=== PATIENT | female | born 1970 | race African-American/Black ===

== ENCOUNTER 2022-06-12 11:46 | Outpatient (CLI) | payer BC, SELFPAY ==
--- NOTE | ~2022-06-12 | MMUS_ITS ---
EXAMINATION: MM diagnostic urmila BI w vanesa, US breast BI limited HISTORY: Palpable lump in the outer of the right breast TECHNIQUE: Craniocaudal, mediolateral, and mediolateral oblique 3-D tomosynthesis images of the right breast were performed and synthetic 2-D images were generated. CAD analysis was submitted and interp reted. High resolution limited bilateral breast ultrasound was performed. COMPARISON: None, baseline BREAST PARENCHYMAL COMPOSITION: The breasts are heterogeneously dense, which may obscure small masses . FINDINGS: MAMMOGRAPHIC FINDINGS: No definite mammographic correlate is identified for the reported palpable abnormality of concern of the right breast. There is a 5 mm oval, obscured, equal density mass in the middle third of the upper -outer quadrant of the left breast at the 2:00 location 5 cm from the nipple. ULTRASOUND: There are small cysts measuring up to 4 mm in the area of palpable abnormality of the right breast. N o suspicious cystic or solid mass is identified. There is a 6 mm cyst of the left breast correspondin g to the mammographic finding in question. IMPRESSION: 1. No suspicious mammographic or sonographic correlate is identified for the reported palpable abnorm ality of concern. Further evaluation at this time should be based on clinical assessment. Continued f ollow-up physical examination is recommended. No mammographic or sonographic evidence of malignancy. 2. Recommend routine screening mammography in one year. BI-RADS Category 2: Benign finding(s). Reviewed, dictated and finalized at location A. IMPRESSION: 1. No suspicious mammographic or sonographic correlate is identified for the re ported palpable abnormality of concern. Further evaluation at this time should be based on clinical assessment. Continued follow-up physical examination is re commended. No mammographic or sonographic evidence of malignancy. 2. Recommend routine screening mammography in one year. BI-RADS Category 2: Benign finding(s).
--- NOTE | ~2022-06-12 | US_ITS ---
EXAMINATION: US pelvic complete DATE: 06/12/2022 13:19 INDICATION: Uterine hypertrophy Comparison:No prior studies for comparison. TECHNIQUE: Multiple transabdominal and endovaginal sonographic images of the pelvis performed. FINDINGS: The uterus measures 18.9 x 11.1 x 11.4 cm. There are multiple uterine masses of varying ech ogenicity, compatible with fibroids. Largest measures 8.6 x 7.2 x 8.3 cm. The endometrial complex is not well delineated due to fibroid changes. The right ovary is not visualized.. The left ovary measures 4.2 x 2.4 x 3.8 cm. There is a 2.4 cm lef t ovarian cyst. There is no free fluid in the pelvis. There are no abnormal masses seen on either side. IMPRESSION: 1. Enlarged fibroid uterus the largest discrete fibroid measures 8.3 cm. 2: Left ovarian cyst measures 2.4 cm. Reviewed, dictated and finalized at location B.
== END 2022-06-12 11:47 ==
PROVIDERS: PCP Advanced Practice Midwife; Visit Provider Advanced Practice Midwife
DX: N63.10 Unspecified lump in the right breast, unspecified quadrant (principal); N85.2 Hypertrophy of uterus; N93.8 Other specified abnormal uterine and vaginal bleeding; N83.202 Unspecified ovarian cyst, left side
CPT/HCPCS: 76642; 76856; 77062; 77066; G0279

== ENCOUNTER 2022-06-14 07:07 | Outpatient (RCR) | payer BC, SELFPAY ==
[2022-06-13 15:49] LABS: Hematocrit 22.3 % (37.0-47.0)
[2022-06-13 16:48] LABS: Hemoglobin 5.8 g/dL (12.0-15.0)
[2022-06-14] VITALS (9 sets, daily range): BP systolic 101–128; BP diastolic 56–81; PULSE 63–86; RESP 14–16; TEMP 36.4–37.1; O2SAT 99–100
[2022-06-14] MEDS: SODIUM CHLORIDE 0.9% IV 250 ML 30 ML IV CONT (07:37)
--- NOTE | 2022-06-14 13:42 | PC.NURSE ---
2 unit PRBC transfusion finished. RN presented discharge instructions, and patient left via personal vehicle at 1340.
== END 2022-09-11 23:59 | disposition home or self-care (01) ==
LOC: ANHCPCTRAN 07:07
PROVIDERS: PCP Advanced Practice Midwife; Visit Provider Obstetrics & Gynecology Gynecology
DX: D58.2 Other hemoglobinopathies (principal)
CPT/HCPCS: 36415; 36430; 85014; 85018; 86850; 86900; 86901; 86920; J7050; P9016

== ENCOUNTER 2022-06-21 11:26 | Outpatient (CLI) | payer BC, SELFPAY ==
[2022-06-21 12:07] LABS: Hematocrit 32.5 % (37.0-47.0); Immature Platelet Fraction Pct 7.2 % (0.9-11.2); Mean Corpuscular HGB Conc 27.7 g/dl (32-36); Mean Corpuscular Hemoglobin 19.3 pg (26-34); Mean Corpuscular Volume 69.7 fl (80-100); Platelet Count Result 272 k/mm3 (150-375); Red Blood Count 4.66 M/mm3 (4.2-5.4); Red Cell Distribution Width 32.7 % (11.5-14.5); White Blood Count 5.9 K/mm3 (4.5-10.0)
== END 2022-06-21 11:27 | disposition home or self-care (01) ==
LOC: ANHLAB 11:31
PROVIDERS: Visit Provider Obstetrics & Gynecology Gynecology
DX: D50.9 Iron deficiency anemia, unspecified (principal)
CPT/HCPCS: 36415; 85027; 85055

== ENCOUNTER 2022-07-07 17:25 | Emergency (ER) | payer BC, SELFPAY ==
[2022-07-07 17:30] VITALS: BP 141/84; PULSE 87; RESP 16; TEMP 36.6; O2SAT 100
[2022-07-07 17:48] LABS: Basophils Percent Auto 0.5 % (0.2-1.2); Eosinophils Absolute Auto 0.1 K/mm3 (0-0.3); Eosinophils Percent Auto 1.6 % (0-4.4); Hematocrit 35.4 % (37.0-47.0); Hemoglobin 10.6 g/dL (12.0-15.0); Immature Granulocyte Absolute 0.01 K/mm3 (0.00-0.031); Immature Granulocyte Percent A 0.1 % (0-0.5); Immature Platelet Fraction Pct 4.6 % (0.9-11.2); Mean Corpuscular HGB Conc 29.9 g/dl (32-36); Mean Corpuscular Hemoglobin 23.2 pg (26-34); Mean Corpuscular Volume 77.5 fl (80-100); Monocytes Absolute Auto 0.6 K/mm3 (0.1-0.6); Monocytes Percent Auto 6.9 % (2.6-8.5); Neutrophils Absolute Auto 6.5 K/mm3 (1.3-6.7); Neutrophils Percent Auto 72.9 % (45.5-73.1); Platelet Count Result 224 k/mm3 (150-375); Red Blood Count 4.57 M/mm3 (4.2-5.4); White Blood Count 8.9 K/mm3 (4.5-10.0)
[2022-07-07 18:03] LABS: Alanine Aminotransferase 33 U/L (6-35); Albumin Level 4.4 g/dL (3.5-5.1); Alkaline Phosphatase 44 U/L (38-126); Anion Gap 7 mmol/L (8-16); Aspartate Amino Transferase 34 U/L (14-36); Bilirubin,Total 0.2 mg/dL (0.2-1.3); Blood Urea Nitrogen 13 mg/dL (7-17); Calcium 8.9 mg/dL (8.4-10.2); Carbon Dioxide 27 mmol/L (22-30); Chloride 105 mmol/L (98-107); Estimated CRCL calculation 66 ml/min; Estimated Glomerular Filt Rate > 60; Glucose 121 mg/dL (65-110); Potassium 3.9 mmol/L (3.4-5.0); Sodium 139 mmol/L (137-145)
[2022-07-07 18:15] LABS: Platelet Estimate Adequate (Adequate)
[2022-07-07 18:17] LABS: Schistocytes Rare (NORMAL)
[2022-07-07 18:18] LABS: Anisocytosis 3+ (NORMAL); Hypochromasia 1+ (NORMAL)
[2022-07-07 18:19] LABS: Ovalocytes 1+ (NORMAL)
--- NOTE | 2022-07-07 19:39 | ED.GENADULT ---
HPI - General Adult General Chief complaint: Vaginal Bleeding Stated complaint: vaginal bleeding Time Seen by Provider: 07/07/22 19:12 History of Present Illness HPI narrative: Patient is a 52-year-old female who presents the emergency department with chief complaint of vaginal bleeding. Patient reports that she started bleeding on the and at times has been going through a few pads about every 1-2 hours. The patient reports that she has not been passing clots denies syncope reports that she has had some episodes where she feels a little lightheaded she does report with her previous cycle she required transfusion when her hemoglobin dropped down to the fives. The patient reports she is scheduled for a D&C later this month with her ASSOCIATE PROF[employer]OM[employer] patient reports that she has been taking her iron pills and is also been taking oral TXA that was prescribed for her by her OB Related Data Home Medications Medication Instructions Recorded Confirmed No Home Medications 06/14/22 06/14/22 Allergies Allergy/AdvReac Type Severity Reaction Status Date / Time No Known Allergies Allergy Verified 07/07/22 18:16 Review of Systems Review of Systems: A 10 system review of systems was completed on the patient and is negative except for what is stated in the HPI. Nursing and ancillary documentation was reviewed. Exam Narrative: GENERAL: Well-appearing, well-nourished, and in no acute distress. HEAD: Normocephalic, atraumatic. EYES: PERRLA and EOMI. ENT: Nares clear, no rhinorrhea or epistaxis. Mucous membranes moist. NECK: Supple. CHEST: Clear to auscultation. No respiratory distress. HEART: Regular rate and rhythm. No murmur heard. Normal peripheral pulses. ABDOMEN: Soft, nontender, nondistended, normal active bowel sounds. : Normal external exam there was a small amount of active bleeding in the vaginal vault no clots present vault was able to be cleared with 2 OB swabs EXTREMITIES: Normal range of motion. No edema. SKIN: Warm, dry, no rash. NEURO: No focal deficits. Alert and oriented x3. PSYCH: Normal mood and affect. Course Vital Signs Vital signs: Vital Signs Temperature 36.6 C 07/07/22 17:30 Pulse Rate 87 07/07/22 17:30 Respiratory Rate 16 07/07/22 17:30 Blood Pressure 141/84 H 07/07/22 17:30 Pulse Oximetry 100 07/07/22 17:30 Oxygen Delivery Room Air 07/07/22 17:30 Temperature 36.6 C 07/07/22 17:30 Pulse Rate 87 07/07/22 17:30 Respiratory Rate 16 07/07/22 17:30 Blood Pressure 141/84 H 07/07/22 17:30 Pulse Oximetry 100 07/07/22 17:30 Oxygen Delivery Room Air 07/07/22 17:30 Medical Decision Making MDM Narrative Medical decision making narrative: Differential diagnosis includes bleeding from uterine fibroid, dysfunctional uterine bleeding, menorrhagia Laboratory studies were obtained on the patient which showed a hemoglobin of 10.6. This is much better than the patient's previous ones where she was 5.8 and then subsequently 9 after receiving 2 units of blood. The patient has been compliant with the TXA and is to compliant with her iron the case was discussed with the patient's ASSOCIATE PROFESSOR [employer]CONOM[employer] who will follow the patient in the office and is planning on doing a D&C as an outpatient Vital Signs Vital Signs: Vital Signs Temperature 36.6 C 07/07/22 17:30 Pulse Rate 87 07/07/22 17:30 Respiratory Rate 16 07/07/22 17:30 Blood Pressure 141/84 H 07/07/22 17:30 Pulse Oximetry 100 07/07/22 17:30 Oxygen Delivery Room Air 07/07/22 17:30 Temperature 36.6 C 07/07/22 17:30 Pulse Rate 87 07/07/22 17:30 Respiratory Rate 16 07/07/22 17:30 Blood Pressure 141/84 H 07/07/22 17:30 Pulse Oximetry 100 07/07/22 17:30 Oxygen Delivery Room Air 07/07/22 17:30 Lab Data 07/07/22 17:40 07/07/22 17:40 Labs: Lab Results 07/07/22 Range/Units 17:40 WBC 8.9 (4.5-10.0) K/mm3 RBC 4.57 (4.2-5.4) M/mm3 Hgb 10
[2022-07-07 19:50] VITALS: BP 138/72; PULSE 70; RESP 15; O2SAT 99
== END 2022-07-07 19:51 | disposition home or self-care (01) ==
PROVIDERS: Emergency Medicine; Emergency Provider Emergency Medicine; PCP Obstetrics & Gynecology Gynecology
DX: N92.1 Excessive and frequent menstruation with irregular cycle (principal)
CPT/HCPCS: 36415; 80053; 85025; 85055; 99284

== ENCOUNTER 2022-07-24 00:53 | Day surgery (SDC) | payer BC, SELFPAY ==
--- NOTE | 2022-07-14 08:58 | PC.NURSE ---
Report to the Outpatient Waiting Room, entrance under the green pavilion located off [facility], at time _0830__ on date _07/24/22__. Planned Procedure Time: _1030__. Time changes happen often and if your time is changed the preop area will call you the afternoon before. - You and your visitor will be asked to self-screen and do not enter if you have any COVID symptoms. - A mask is optional within the hospital at this time. Patients may have clear liquids (water, carbonated beverages, clear teas, apple juice) until 3 hours prior to surgery with a maximum of 20 ounces. - No food from midnight until time of surgery - Infants may have breast milk until 4 hours before surgery, formula 6 hours prior to surgery. - Children will be allowed to drink immediately following surgery. If applicable, please bring a bottle or sippy cup to assist with drinking. Juice, water, soda, and popsicles are readily available. For infants on formula, please bring formula the day of surgery. Pacifiers are allowed. Take the following medications with a SIP of water the morning of surgery: DO NOT STOP ANY OF YOUR OTHER PRESCRIPTION MEDICATIONS PRIOR TO SURGERY ?EXCEPT THE FOLLOWING Medications to discontinue per physician Date to take last dose Please no make-up, nail georgian, hairspray, perfume, deodorant, or body powder the day of surgery. No jewelry (including any body piercings) or valuables the day of surgery, leave them at home. Please take a shower or bath the night before, or the morning of, surgery with an antibacterial soap. Wear comfortable, loose fitting clothing. Children are encouraged to wear pajamas. - Jewelry must be removed prior to entering the operating room. Rings and piercings that are not removed may be cut off. - The hospital will not accept responsibility for valuables. - Please leave all valuables, including medications, at home the day of surgery. If you are going home after surgery, a licensed marine engine driver must drive you home. - NO public transportation without another adult if you receive anesthesia. - We recommend that an adult stay with you for 24 hours following discharge. - We also recommend that you do not drive, make important decision, drink alcoholic beverages, or take any drugs that were not prescribed by your health care provider for at least 24 hours after your discharge time. For Pediatric surgeries, we recommend two adults accompany the child home. Follow any additional instructions given to you from your surgeon. If you or anyone in your household have experienced Covid symptoms in the past week, please notify your surgeon or the nurse liaison at the phone number below for possible testing. Telephone instructions given to _patient__and asked if any additional questions and then verbalized understanding. Patient advised to call surgeon office or pre surgery nurse liaison [phone] if any additional questions.
[2022-07-14 09:04] VITALS: BMI 26.3
--- NOTE | 2022-07-17 13:17 | SUR.PREOP ---
on 07/17/22 @ 5857- Called pt to update she should stop all vitamins 3 days prior to surgery. Pt will not take any meds DOS.
--- NOTE | 2022-07-24 08:09 | WPDHPUPDATE1 ---
History and Physical Update Update Date/Time: 07/24/22 08:09 History and Physical has been reviewed, including an updated exam of the patient. There are NO changes in the patient's condition. Risks, benefits, and alternatives have been discussed and questions answered. Patient agrees to proceed with procedure.
--- NOTE | 2022-07-24 08:09 | PM.HPGS ---
History of Present Illness History of Present Illness Consent: Risks, benefits, and alternatives have been discussed and questions answered. Patient agrees to proceed with procedure. Chief complaint: abnormal uterine bleeding, anemia, fibroid Narrative: Kusum Decker is a 52 year old female with severe anemia. Hemoglobin and hematocrit in June of 2022 were 6 and 24. Patient received blood transfusion x2 units and has increased to 9 and 32 following the transfusion. The patient has known fibroids. Patient states her cycles have changed over the past year. She is having approximately 2 cycles per month. She denies heavy bleeding or clots. It was recommended to proceed with D&C hysteroscopy. Risks of infection, bleeding, perforation, and possible pathology were reviewed. If there are small enough fibroids submucosally, plan to proceed with myomectomy. Risks of fluid imbalance is reviewed. Patient voiced understanding and agrees to proceed. Review of Systems Review of Systems: not repeated day of surgery; patient states no changes in status PMFSH Past Medical History Medical History (Updated 07/24/22 @ 08:14 by Etta Drew MD) History of spontaneous x2 (normal spontaneous vaginal delivery) x2 Social History Social History Years smoked: 30 Smoking status: Former smoker Tobacco type: cigarettes Alcohol intake: never Substance use: never Substance use type: does not use Last use: june 13, 2022 Living arrangements: alone Spiritual care concerns: No Meds Home Medications and Allergies Home Medications Medication Instructions Recorded Confirmed Type Iron (ferrous sulfate) 1 tablet PO BID 07/14/22 07/14/22 History multivitamin 1 tablet PO DAILY 07/14/22 07/14/22 History multivitamin with minerals-folic 1 tablet PO DAILY 07/14/22 07/14/22 History acid 200 mcg chewable tablet ([employer]) Allergies Allergy/AdvReac Type Severity Reaction Status Date / Time No Known Allergies Allergy Verified 07/14/22 08:48 Exam Const: General: healthy appearing and alert Orientation/consciousness: patient oriented x3 Resp: Effort & Inspection: normal respiratory effort GI: GI Palp: Yes Soft to palpation, No Tenderness to palpation present (GI) and Yes Other GI palpation findings present ( fundus palpable just below umbilicus) : External Female Exam: normal external appearance Speculum Exam - Vagina: normal appearance of the vagina and normal vaginal discharge Speculum Exam - Cervix: normal appearance of the cervix Bimanual exam- vagina & uterus: enlarged ( approximately 18 weeks size) Bimanual Exam- Adnexa, other: normal adnexae and No adnexal tenderness Neuro: General: patient oriented x3 Assessment and Plan Assessment and plan (1) Fibroids: Code(s): D21.9 - Benign neoplasm of connective and other soft tissue, unspecified Status: Acute Assessment and Plan: plan to proceed with D&C hysteroscopy (2) Anemia: Code(s): D64.9 - Anemia, unspecified Status: Acute
[2022-07-24 08:51] VITALS: BP 120/73; PULSE 71; RESP 16; TEMP 36.2; O2SAT 100
[2022-07-24] MEDS: ACETAMINOPHEN 500 MG TABLET 1000 MG PO (09:17)
[2022-07-24] MEDS: LACTATED RINGERS 1,000 ML 30 ML IV CONT (09:23)
--- NOTE | 2022-07-24 09:39 | P.PNAN_ITS ---
Anes - Initial Pre Proc Eval Procedure: Operation Date: 07/24/22 10:30 Proposed Procedures p Hysteroscopy Dilation and Curettage with Possible Myosure - Etta Drew MD Date/Time: 07/24/22 09:39 Surgeon: Etta Drew MD Pre Op Diagnosis: abnormal uterine bleeding, anemia, fibroid Patient Data Age: 52 Gender: F Height: 1.73 m Weight: 78.65 kg Last Vital Signs Temp 36.2 C L 07/24/22 08:51 Pulse 71 07/24/22 08:51 Resp 16 07/24/22 08:51 BP 120/73 07/24/22 08:51 Pulse Ox 100 07/24/22 08:51 O2 Del Method Room Air 07/24/22 08:51 Allergies Allergy/AdvReac Type Severity Reaction Status Date / Time No Known Allergies Allergy Verified 07/24/22 09:07 Home Medications Medication Instructions Recorded Confirmed Type Iron (ferrous sulfate) 1 tablet PO BID 07/14/22 07/24/22 History multivitamin 1 tablet PO DAILY 07/14/22 07/24/22 History multivitamin with minerals-folic 1 tablet PO DAILY 07/14/22 07/24/22 History acid 200 mcg chewable tablet ([employer]) Patient hx anesthesia problems: none Family hx anesthesia problems: none Results Review: All pre-operative results and documents have been reviewed as part of the pre- operative evaluation. [facility] Past Medical History Medical History History of spontaneous x2 (normal spontaneous vaginal delivery) x2 Social History Social History Years smoked: 30 Smoking status: Former smoker Tobacco type: cigarettes Alcohol intake: never Substance use: never Substance use type: does not use Last use: june 13, 2022 Living arrangements: alone Spiritual care concerns: No Anes - Eval Final PreProcedure Day of Procedure 07/24/22 09:39 Patient weight: overweight Heart: regular rate and rhythm Lungs: clear to auscultation Airway: Mallampati scale class II Neurological: alert and oriented Last oral intake: >/= 8 hours ASA classification: III Emergent: no Anesthetic plan: proceed Anesthesia type and monitoring: general GIVS and standard monitoring Results Review: All pre-operative results and documents have been reviewed as part of the pre- operative evaluation. Informed Consent: The patient's anesthetic plan and its attendant risks and benefits were discussed with the patient/family/POA. Questions were solicited and answers provided to the satisfaction of the patient/family/POA.
[2022-07-24] MEDS: LIDOCAINE HCL 1% LOCAL INJ 10 ML VIAL INFILTRATE (10:25)
--- NOTE | 2022-07-24 10:46 | P.OP_ITS ---
Procedure Note - Detailed Date of Procedure 07/24/22 Pre-op Diagnosis abnormal uterine bleeding, anemia, fibroids Post-op Diagnosis Same Procedure Performed D&C hysteroscopy Surgeon Etta Drew MD Anesthesia MAC and Local Findings the the uterus sounds to 10cm and appears grossly normal Description of Procedure The patient is taken to operating room and placed under anesthesia in the dorsal lithotomy position. She was prepped and draped in the usual sterile fashion. [place] speculum was placed in the vagina and the cervix is grasped on the anterior lip with a tenaculum. The cervix is injected in each quadrant with 1% lidocaine. The uterus is sounded to 10cm. The cervix is dilated to a 5 Hegar. The hysteroscope was placed with the above-stated findings. The hysteroscope was removed. The sharp curette is used to curette the endometrium until a good uterine cry was noted in all areas. All instruments are removed. Sponge, needle, and instrument counts are correct per the OR staff. The patient is awakened from anesthesia and taken to recovery in stable condition. Estimated Blood Loss 5 Drains No Packing No Pathology Yes ( Endometrial curettings) Complications No immediate complications Condition Stable Disposition PACU
[2022-07-24 10:49] VITALS: BP 109/68; PULSE 67; RESP 12; O2SAT 98
[2022-07-24 11:15] VITALS: BP 135/76; PULSE 60
== END 2022-07-24 11:32 | disposition home or self-care (01) ==
PROVIDERS: Visit Provider Obstetrics & Gynecology Gynecology
PROC: 0U5B8ZZ Destruction of Endometrium, Via Natural or Artificial Opening Endoscopic (ICD-10-PCS; CPT 58563; principal; 2022-07-24 10:30)
DX: N93.9 Abnormal uterine and vaginal bleeding, unspecified (principal); D64.9 Anemia, unspecified; Z87.891 Personal history of nicotine dependence
CPT/HCPCS: 58558; 88305; A9270; J2704; J3010; J7120

== ENCOUNTER 2023-10-01 08:15 | Emergency (ER) | payer BC, SELFPAY ==
[2023-10-01] VITALS (8 sets, daily range): BP systolic 103–139; BP diastolic 63–90; PULSE 68–95; RESP 15–20; TEMP 36.5–36.8; O2SAT 100
[2023-10-01] MEDS: SODIUM CHLORIDE 0.9% IV 1,000 ML 999 ML IV CONT (09:18)
[2023-10-01 09:24] LABS: BEDSIDEPREGUCG Negative
--- NOTE | 2023-10-01 09:27 | ED.FEMALEGU ---
HPI - Female Genitourinary General Chief complaint: Vaginal Bleeding Stated complaint: heavy vaginal bleeding since Sunday, dizziness Time Seen by Provider: 10/01/23 09:08 Source: patient Mode of arrival: ambulatory Limitations: no limitations History of Present Illness HPI Narrative: This is a 53-year-old female who presents the ED with report of vaginal bleeding. Patient reports she began her normal menstrual cycle on Sunday and bleeding has been heavier than usual. States she is soaking through heavy maxi pads with a diaper within 1-2 hours. Yesterday and today, she reports intermittent mild lightheadedness, nausea. Reports lower abdominal cramping. Denies significant pain. Patient does have history of irregular and heavy cycles, Hx of anemia, requiring blood transfusion in the past. States she has been premenopausal this past year. Last cycle prior to this cycle was around 1.5 months ago. Also has hx of fibroids w/ surgical removal. Sees Dr. Drew. Denies fevers, vomiting, rectal bleeding, melena, dysuria, hematuria. Related Data Home Medications Medication Instructions Recorded Confirmed Iron (ferrous sulfate) 1 tablet PO BID 07/14/22 07/24/22 multivitamin 1 tablet PO DAILY 07/14/22 07/24/22 multivitamin with minerals-folic 1 tablet PO DAILY 07/14/22 07/24/22 acid 200 mcg chewable tablet ([employer]) Allergies Allergy/AdvReac Type Severity Reaction Status Date / Time No Known Allergies Allergy Verified 10/01/23 09:11 Review of Systems Review of Systems: All systems reviewed & are unremarkable except as noted in HPI. All systems reviewed & are unremarkable except as noted in HPI and below PMFSH Past Medical History Medical History (Updated 10/01/23 @ 10:50 by Patrizia Cowart PA-C) Anemia Fibroids History of spontaneous x2 (normal spontaneous vaginal delivery) x2 Surgical History Surgical History (Updated 10/01/23 @ 09:38 by Patrizia Cowart PA-C) H/O dilation and curettage Social History Social History Years smoked: 30 Smoking status: Former smoker Tobacco type: cigarettes Alcohol intake: never Substance use: never Substance use type: does not use Last use: june 13, 2022 Living arrangements: alone Spiritual care concerns: No Exam Narrative: GENERAL: Well appearing, well-nourished, non-toxic, in no acute distress. HEAD: Normocephalic, atraumatic. RESPIRATORY: Airway patent, respirations nonlabored. Clear to auscultation bilaterally, no rales, rhonchi, wheezing. CARDIOVASCULAR: Regular rate and rhythm ABDOMINAL: Soft, no significant tenderness throughout abdomen, nondistended. Normoactive BS. PELVIC: Normal external genitalia. Moderate amount of dark red vaginal bleeding in vaginal vault. Required several long Q-tips to clear field. Cervix appears unremarkable. No significant CMT. No genital lesions. MUSCULOSKELETAL: Moves all extremities. No gross deformities. SKIN: Warm, dry, normal color. NEURO: A&O X3. Speech clear. PSYCHIATRIC: Appropriate mood and affect. Normal interaction. Course Vital Signs Vital signs: Vital Signs Temperature 98.2 F 10/01/23 08:19 Pulse Rate 90 10/01/23 08:19 Respiratory Rate 15 10/01/23 08:19 Blood Pressure 129/76 10/01/23 08:19 Pulse Oximetry 100 10/01/23 08:19 Temperature 98.2 F 10/01/23 08:19 Pulse Rate 94 10/01/23 10:30 Respiratory Rate 18 10/01/23 10:30 Blood Pressure 139/71 10/01/23 10:30 Pulse Oximetry 100 10/01/23 10:30 MDM - Female Genitourinary MDM Narrative Medical decision making narrative: patient presented to ED with heavy vaginal bleeding. Currently on her menstrual cycle. Perimenopausal. History of fibroids and anemia. Vital signs are stable upon arrival. Patient is hemodynamically stable. In no acute distress. Orthostatic vital signs ev
[2023-10-01 09:32] LABS: Basophils Percent Auto 0.7 % (0.2-1.2); Eosinophils Absolute Auto 0.1 K/mm3 (0-0.3); Eosinophils Percent Auto 1.7 % (0-4.4); Hematocrit 27.2 % (37.0-47.0); Hemoglobin 7.7 g/dL (12.0-15.0); Immature Granulocyte Absolute 0.02 K/mm3 (0.00-0.031); Immature Granulocyte Percent A 0.3 % (0-0.5); Lymphocytes Absolute Auto 1.29 K/mm3 (0.9-3.2); Lymphocytes Percent Auto 21.9 % (18.3-44.2); Mean Corpuscular HGB Conc 28.3 g/dl (32-36); Mean Corpuscular Hemoglobin 20.4 pg (26-34); Mean Platelet Volume 10.8 fl (7.4-10.4); Monocytes Absolute Auto 0.5 K/mm3 (0.1-0.6); Monocytes Percent Auto 7.6 % (2.6-8.5); Neutrophils Percent Auto 67.8 % (45.5-73.1); Platelet Count Result 312 k/mm3 (150-375); Red Blood Count 3.78 M/mm3 (4.2-5.4); Red Cell Distribution Width 17.4 % (11.5-14.5); White Blood Count 5.9 K/mm3 (4.5-10.0)
[2023-10-01 09:43] LABS: INR 0.9
[2023-10-01 09:44] LABS: Partial Thromboplastin Time 25.2 Seconds (22.3-36.8)
[2023-10-01 09:45] LABS: Alanine Aminotransferase 11 U/L (6-35); Albumin Level 4.3 g/dL (3.5-5.1); Alkaline Phosphatase 53 U/L (38-126); Anion Gap 13 mmol/L (4-12); Aspartate Amino Transferase 19 U/L (14-36); Bilirubin,Total < 0.1 mg/dL (0.2-1.3); Blood Urea Nitrogen 7 mg/dL (7-17); Calcium 8.8 mg/dL (8.4-10.2); Carbon Dioxide 23 mmol/L (22-30); Chloride 101 mmol/L (98-107); Estimated CRCL calculation 130 ml/min; Estimated Glomerular Filt Rate > 60; Glucose 100 mg/dL (65-110); Potassium 3.7 mmol/L (3.4-5.0); Sodium 137 mmol/L (137-145)
[2023-10-01] MEDS: ONDANSETRON INJ 4 MG/2 ML VIAL IV PUSH (09:51)
[2023-10-01 10:08] LABS: Hypochromasia 2+; Platelet Estimate Adequate (Adequate)
[2023-10-01 10:09] LABS: Anisocytosis 1+; Ovalocytes 1+; Schistocytes None Seen
[2023-10-01] MEDS: TRANEXAMIC ACID 1,000MG/ISO100 1,000 MG/100 ML BAG 200 MG IVPB (10:51)
[2023-10-01] MEDS: TUBING, BLOOD SET 1 EACH XX (11:28)
[2023-10-01 11:46] LABS: Transferrin 285 mg/dL (206-381)
[2023-10-01 11:50] LABS: Iron 17 ug/dL (37-170)
[2023-10-01 12:00] LABS: Percent Iron Saturation 4 % (20-50)
[2023-10-01 12:25] LABS: Ferritin 3.24 ng/mL (11.1-264)
[2023-10-01] MEDS: SODIUM CHLORIDE 0.9% IV 250 ML 30 ML IV CONT (12:48)
[2023-10-01 15:23] LABS: Appearance Urine Turbid (Clear); Bacteria Urine 3+ /hpf; Color Urine Red (Yellow); Non Pathogenic Casts 0-2; Squamous Epithelial Cell Urine Occasional /hpf (Few); WBC Urine >100 /hpf (0-3)
[2023-10-01 15:26] LABS: Need Manual Microscopic Need Manual
[2023-10-01 15:29] LABS: RBC Urine >100 /hpf (0-2)
[2023-10-01 15:30] LABS: Add Urine Microscopic? YES
== END 2023-10-01 14:02 | disposition home or self-care (01) ==
PROVIDERS: Emergency Provider Physician Assistant
DX: N93.8 Other specified abnormal uterine and vaginal bleeding (principal); D64.9 Anemia, unspecified; Z87.891 Personal history of nicotine dependence
CPT/HCPCS: 36415; 36430; 80053; 81001; 81025; 82728; 83540; 83550; 84466; 85025; 85610; 85730; 86850; 86900; 86901; 86923; 87086; 96361; 96365; 96375; 99284; J2405; J7030; J7050; P9016

== ENCOUNTER 2023-10-06 11:24 | Outpatient (CLI) | payer BC, SELFPAY ==
--- NOTE | ~2023-10-06 | US_ITS ---
EXAMINATION: US pelvic complete INDICATION: Abnormal uterine bleeding Comparison:No prior studies for comparison. TECHNIQUE: Multiple transabdominal and endovaginal sonographic images of the pelvis performed. FINDINGS: The uterus measures 17.2 x 11.2 x 12.8. There are multiple uterine fibroids, largest measur ing 9.9 cm. Endometrium is not visualized. The ovaries are not visualized due to enlarged uterus. There is no free fluid in the pelvis. There are no abnormal masses seen on either side. IMPRESSION: 1. Enlarged fibroid uterus, largest discrete fibroid measures 9.9 cm. Reviewed, dictated and finalized at location B.
== END 2023-10-06 11:25 ==
PROVIDERS: PCP Advanced Practice Midwife; Visit Provider Advanced Practice Midwife
DX: D25.9 Leiomyoma of uterus, unspecified (principal); N85.2 Hypertrophy of uterus
CPT/HCPCS: 76856

== ENCOUNTER 2023-12-03 11:54 | Inpatient (IN) | payer BC, SELFPAY ==
[2023-11-26 10:22] VITALS: BMI 28.0
--- NOTE | 2023-11-26 10:24 | PC.NURSE ---
Report to the Outpatient Waiting Room, entrance under the green pavilion located off [facility], at time _0745_ on date _[id number]_. Planned Procedure Time: _0945_.? Time changes happen often and if your time is changed the preop area will call you the afternoon before. - You and your visitor will be asked to self-screen and do not enter if you have any COVID symptoms. Please call surgeon if you need to reschedule. - A mask is optional within the hospital at this time. Patients may have clear liquids (water, carbonated beverages, clear teas, apple juice) until 3 hours prior to surgery with a maximum of 20 ounces. - No food from midnight until time of surgery and no smoking Take only the following medications with a SIP of water on the morning of surgery: __None DO NOT STOP ANY OF YOUR OTHER PRESCRIPTION MEDICATIONS PRIOR TO SURGERY EXCEPT THE FOLLOWING Medications to discontinue per physician ___Vitamins Date to take last hkcs____[phone]____ Please no make-up, nail sao tomean, hairspray, perfume, deodorant, or body powder the day of surgery.? No jewelry (including any body piercings) or valuables the day of surgery, leave them at home.? Please take a shower or bath the night before, or the morning of, surgery with an antibacterial soap.? Wear comfortable, loose fitting clothing.? - Jewelry must be removed prior to entering the operating room.? Rings and piercings that are not removed may be cut off. - The hospital will not accept responsibility for valuables.? - Please leave all valuables, including medications, at home the day of surgery. If you are going home after surgery, a licensed national flatbed truck driver must drive you home.? - NO public transportation without another adult if you receive anesthesia. - We recommend that an adult stay with you for 24 hours following discharge. - We also recommend that you do not drive, make important decision, drink alcoholic beverages, or take any drugs that were not prescribed by your health care provider for at least 24 hours after your discharge time. Follow any additional instructions given to you from your surgeon. Telephone instructions given to _Kusum__and asked if any additional questions and then verbalized understanding. Patient advised to call surgeon office or pre surgery nurse liaison [phone] if any additional questions.
--- NOTE | 2023-12-02 15:44 | P.PNAN_ITS ---
Anes - Eval Pre Procedure Procedure: Operation Date: 12/03/23 09:00 Proposed Procedures p Total Abdominal Hysterectomy with Bilateral Salpingo Oophorectomy - Etta Drew MD Date/Time: 12/02/23 15:44 Pre Op Diagnosis: menorrhagia, fibroids Patient Data Age: 53 Gender: F Height: 1.73 m Weight: 83.6 kg Allergies Allergy/AdvReac Type Severity Reaction Status Date / Time No Known Allergies Allergy Verified 11/26/23 10:16 Home Medications Medication Instructions Recorded Confirmed Type Iron (ferrous sulfate) 1 tablet PO BID 07/14/22 11/26/23 History multivitamin with minerals-folic 1 tablet PO DAILY 07/14/22 11/26/23 History acid 200 mcg chewable tablet (One-A-Day Women [employer]) ondansetron 4 mg disintegrating 4 mg PO Q8H PRN nausea and 10/01/23 11/26/23 Rx tablet vomiting #10 tabs tranexamic acid 650 mg tablet 1,300 mg PO TID 5 days #30 tabs 10/01/23 11/26/23 Rx Patient hx anesthesia problems: none Family hx anesthesia problems: none Results Review: All pre-operative results and documents have been reviewed as part of the pre- operative evaluation. PMFSH Past Medical History Medical History Anemia Fibroids History of spontaneous x2 (normal spontaneous vaginal delivery) x2 Surgical History Surgical History H/O dilation and curettage Social History Social History Years smoked: 45 Smoking status: Current every day smoker Tobacco type: cigarettes Alcohol intake: never Substance use: never Substance use type: marijuana Other substance usage details: Daily Last use: june 13, 2022 Living arrangements: with family Spiritual care concerns: No Exam Day of Procedure 12/02/23 15:44
[2023-12-03] VITALS (13 sets, daily range): BP systolic 96–153; BP diastolic 47–84; PULSE 60–78; RESP 12–20; TEMP 36.3–37.1; O2SAT 98–100; BMI 28.1
--- NOTE | 2023-12-03 07:20 | P.HP_ITS ---
H&P: HPI History of Present Illness Date/Time: 12/03/23 07:20 Chief Complaint: fibroid uterus with menorrhagia and anemia Narrative: The patient is a 53-year-old with a 17 week size fibroid uterus . She had a h emoglobin of 5.8 and received a blood transfusion. Endometrial biopsy was performed and benign. The original plan was for MyFembree until menopause but it was too expensive for the patient to purchase. The patient was therefore decided to proceed with hysterectomy. Risks of infection, bleeding, injury to internal organs (bowel, bladder, ureters, etc.), DVT and general anesthesia are reviewed. Due to her age she was elected also to proceed with bilateral salpingo-oophorectomy and plans to use an estrogen patch postoperatively. Patient voices understanding and agrees to proceed. Review of Systems Review of Systems: not repeated day of surgery; patient states no changes in status PMFSH Past Medical History Medical History Anemia Fibroids History of spontaneous x2 (normal spontaneous vaginal delivery) x2 Surgical History Surgical History (Updated 12/03/23 @ 07:24 by Etta Drew MD) H/O dilation and curettage History of hysteroscopy Social History Social History Years smoked: 45 Smoking status: Current every day smoker Tobacco type: cigarettes Alcohol intake: never Substance use: never Substance use type: marijuana Other substance usage details: Daily Last use: june 13, 2022 Living arrangements: with family Spiritual care concerns: No Meds Home Medications and Allergies Home Medications Medication Instructions Recorded Confirmed Type Iron (ferrous sulfate) 1 tablet PO BID 07/14/22 11/26/23 History multivitamin with minerals-folic 1 tablet PO DAILY 07/14/22 11/26/23 History acid 200 mcg chewable tablet (One-A-Day Women [employer]) ondansetron 4 mg disintegrating 4 mg PO Q8H PRN nausea and 10/01/23 11/26/23 Rx tablet vomiting #10 tabs tranexamic acid 650 mg tablet 1,300 mg PO TID 5 days #30 tabs 10/01/23 11/26/23 Rx Allergies Allergy/AdvReac Type Severity Reaction Status Date / Time No Known Allergies Allergy Verified 11/26/23 10:16 Exam Const: General: healthy appearing and alert Orientation/consciousness: patient oriented x3 Resp: Effort & Inspection: normal respiratory effort GI: GI Palp: Yes Soft to palpation, No Tenderness to palpation present (GI) and Yes Palpable mass present ( uterus at 18cm) : External Female Exam: normal external appearance Speculum Exam - Vagina: normal appearance of the vagina and normal vaginal discharge Speculum Exam - Cervix: normal appearance of the cervix Bimanual exam- vagina & uterus: enlarged ( 18 week size) and nodular Bimanual Exam- Adnexa, other: normal adnexae and No adnexal tenderness Neuro: General: patient oriented x3 Assessment and Plan Assessment and plan (1) Fibroids: Code(s): D21.9 - Benign neoplasm of connective and other soft tissue, unspecified Status: Acute Assessment and Plan: plan to proceed with total abdominal hysterectomy and bilateral salpingo oophorectomy (2) Anemia: Qualifiers: Anemia type: unspecified type Qualified Code(s): D64.9 - Anemia, unspecified Code(s): D64.9 - Anemia, unspecified Status: Acute
--- NOTE | 2023-12-03 07:20 | WPDHPUPDATE1 ---
History and Physical Update Update Date/Time: 12/03/23 07:20 History and Physical has been reviewed, including an updated exam of the patient. There are NO changes in the patient's condition. Risks, benefits, and alternatives have been discussed and questions answered. Patient agrees to proceed with procedure.
--- NOTE | 2023-12-03 07:53 | WPDANESEPPF ---
Anes - Initial Pre Proc Eval Procedure: Operation Date: 12/03/23 09:00 Proposed Procedures p Total Abdominal Hysterectomy with Bilateral Salpingo Oophorectomy - Etta Drew MD Date/Time: 12/03/23 07:53 Surgeon: Etta Drew MD Pre Op Diagnosis: menorrhagia, fibroids Patient Data Age: 53 Gender: F Height: 1.73 m Weight: 83.6 kg Allergies Allergy/AdvReac Type Severity Reaction Status Date / Time No Known Allergies Allergy Verified 11/26/23 10:16 Home Medications Medication Instructions Recorded Confirmed Type Iron (ferrous sulfate) 1 tablet PO BID 07/14/22 11/26/23 History multivitamin with minerals-folic 1 tablet PO DAILY 07/14/22 11/26/23 History acid 200 mcg chewable tablet (One-A-Day Women [employer]) ondansetron 4 mg disintegrating 4 mg PO Q8H PRN nausea and 10/01/23 11/26/23 Rx tablet vomiting #10 tabs tranexamic acid 650 mg tablet 1,300 mg PO TID 5 days #30 tabs 10/01/23 11/26/23 Rx Laboratory Tests 12/03/23 07:38 Hgb Pending Hct Pending Patient hx anesthesia problems: none Family hx anesthesia problems: none Results Review: All pre-operative results and documents have been reviewed as part of the pre-operative evaluation. [facility] Past Medical History Medical History Anemia Fibroids History of spontaneous x2 (normal spontaneous vaginal delivery) x2 Surgical History Surgical History H/O dilation and curettage History of hysteroscopy Social History Social History Years smoked: 45 Smoking status: Current every day smoker Tobacco type: cigarettes Alcohol intake: never Substance use: never Substance use type: marijuana Other substance usage details: Daily Last use: june 13, 2022 Living arrangements: with family Spiritual care concerns: No Anes - Eval Final PreProcedure Day of Procedure 12/03/23 07:53 Patient weight: overweight Heart: regular rate and rhythm Lungs: clear to auscultation Airway: Mallampati scale class II Neurological: alert and oriented Last oral intake: >/= 8 hours ASA classification: II Emergent: no Anesthetic plan: proceed Anesthesia type and monitoring: general ETT and standard monitoring Results Review: All pre-operative results and documents have been reviewed as part of the pre-operative evaluation. Informed Consent: The patient's anesthetic plan and its attendant risks and benefits were discussed with the patient/family/POA. Questions were solicited and answers provided to the satisfaction of the patient/family/POA.
[2023-12-03] MEDS: SCOPOLAMINE 1 MG PATCH 1 PATCH TRANSDERM (08:01)
[2023-12-03] MEDS: LACTATED RINGERS 1,000 ML 30 ML IV CONT (08:01)
[2023-12-03] MEDS: ACETAMINOPHEN 500 MG TABLET 1000 MG PO ×3 (08:02→18:30)
[2023-12-03] MEDS: KETOROLAC 15 MG/ML VIAL (*BKC) IV PUSH (08:02)
[2023-12-03 08:03] LABS: BEDSIDEPREGUCG Negative (Negative)
[2023-12-03 08:11] LABS: Hematocrit 39.7 % (37.0-47.0); Hemoglobin 12.5 g/dL (12.0-15.0)
[2023-12-03] MEDS: ceFAZolin 2 GM/D5W 50 ML 2 GM/50 ML BAG IVPB (08:22)
--- NOTE | 2023-12-03 10:07 | W.PM.PROC2 ---
Procedure Note - Detailed Date of Procedure 12/03/23 Pre-op Diagnosis menorrhagia, fibroids Post-op Diagnosis Same Procedure Performed Abdominal hysterectomy bilateral salpingo oophorectomy Surgeon Etta Drew MD Anesthesia General Findings enlarged fibroid uterus to the umbilicus, normal-appearing tubes and ovaries Description of Procedure The patient taken operating placed under anesthesia in the dorsal supine position. She was prepped and draped in the usual sterile fashion. A Pfannenstiel skin incision was made after an abdominal exam under anesthesia. Incision was carried down to the underlying layer fascia which was nicked in the midline. Bleeding vessels in the subcutaneous tissue were cauterized for hemostasis. The incision was extended laterally using Robins scissors. Ochsner was used to tent the fascia which was then dissected off using blunt and sharp dissection. The rectus muscles were in the midline. The peritoneum was entered with a Peon. The incision was extended with blunt traction. The bowels packed away using moist laparotomy sponges and the Ana retractor placed. Uterus is delivered through the incision and the cornua were grasped with large peans. The round ligaments were doubly ligated with 0 Vicryl, transected, and the anterior leaf of the broad ligament incised meeting in the midline. The bladder was dissected off using a sponge stick. The window was created in the posterior leaf of the broad ligament and the infundibulopelvic ligaments were doubly clamped, transected, and suture ligated with 0 Vicryl. Uterine vessels are skeletonized, clamped, transected, and suture ligated with 0 Vicryl. The cardinal and uterosacral ligaments were serially clamped, transected, and suture ligated with 0 Vicryl. The uterosacral ligaments were tagged for future use. The scalpel was used to enter the vaginal cuff anteriorly and the vaginal cuff was grasped with a long Allis clamp. The specimen was amputated with Leeanna scissors grasping the vaginal cuff with Allis clamps as each section is cut. Specimen was handed off. There was a small amount of cervix left anteriorly which was grasped with an Allis clamp and removed using Leeanna scissors. The vaginal cuff was then closed using 0 Vicryl in a running lock stitch. Angles were tied to the ipsilateral uterosacral ligaments. Two additional [id number] sutures were required on the anterior cuff for hemostasis. The left angle required 1 additional suture of 0 Vicryl for hemostasis. The pelvis was irrigated and all pedicles and suture lines were noted to be hemostatic. The sponges and retractor are removed. The fascia was closed using 0 Vicryl in a running fashion. Subcutaneous tissues noted to be hemostatic. Skin was closed using 4-0 Vicryl in a subcuticular fashion. Dermaflex was placed over the incision. The sponge, needle, and instrument counts are correct per the OR staff. The patient was awakened from anesthesia and taken to recovery in stable condition. Estimated Blood Loss 500 Drains Yes ( Vogt catheter) Packing No Pathology Yes ( uterus, tubes, ovaries) Complications No immediate complications Condition Stable Disposition PACU
--- NOTE | 2023-12-03 10:15 | P.DS_ITS ---
DS: Admitting Diagnosis Discharge Date 12/05/23 Admitting Diagnosis fibroid uterus menorrhagia with anemia DS: Discharge Diagnosis Discharge Diagnosis (1) Status post total abdominal hysterectomy and bilateral salpingo-oophorectomy ([facility]): Code(s): Z90.710 - Acquired absence of both cervix and uterus; Z90.722 - Acquired absence of ovaries, bilateral; Z90.79 - Acquired absence of other genital organ(s) Status: Acute DS: Summary Hospital Course Reason for hospitalization: postop care Hospital Course: At the time of discharge, the patient was tolerating regular diet, voiding, and ambulating without difficulty. Pain is under good control. Status at Discharge Functional status at discharge: independent ambulation Overall status at discharge: patient is progressing back to baseline Time Spent with Patient Time attestation: Total time spent providing and/or coordinating discharge services: DS: Data Data Completed and Pending Pending studies at discharge: Pending at discharge 12/03/23 08:46 Surgical [PTH] Routine Labs on day of discharge: Labs from last 24 hours 12/03/23 12/03/23 07:58 07:38 Hgb 12.5 D Hct 39.7 POC Urine HCG, Qual Negative Blood Type A Positive Antibody Screen Negative Discharge Plan Discharge Attending physician on discharge: Etta Drew Discharging Clinician: Justina Olson Anticipated Discharge Date/Time: 12/05/23 07:58 Patient Disposition: Home, Self-Care Activity: may drive after 2 weeks and pelvic rest Diet: as tolerated Wound Care Instructions: follow printed instructions Patient Instructions: Hysterectomy (DC) Stand Alone Forms: General Discharge Instructions Follow-up/Referrals: Etta Drew MD [Physician] - 1 Week ( And 6 week) Discharge Medications: New docusate sodium 100 mg Capsule 100 mg PO BID 14 Days Qty: 28 0RF ibuprofen 600 mg Tablet 600 mg PO Q6HR Qty: 30 0RF oxycodone 5 mg Tablet 5 mg PO Q4H PRN (Reason: Pain Rated 4-6) Qty: 15 0RF Continued multivit with min-folic acid [One-A-Day Women [employer]] 200 mcg Tablet,Chewable 1 tablet PO DAILY Iron (ferrous sulfate) 1 tablet PO BID Rx Instructions: anemia ondansetron 4 mg tablet,disintegrating 4 mg PO Q8H PRN (Reason: nausea and vomiting) Qty: 10 0RF Discontinued tranexamic acid 650 mg tablet 1,300 mg PO TID 5 Days Qty: 30 0RF Date of admission: 12/03/23 11:54 Primary Care Provider: PHYSICIAN,IMMIGRATION MANAGER Admitting Provider: Etta Drew Attending physician on admission: Etta Drew Condition: Stable
[2023-12-03] MEDS: fentaNYL CITRATE INJ (*CRX) 100 MCG/2 ML VIAL 25 MCG IV PUSH ×8 (10:34→11:54)
[2023-12-03 11:48] LABS: Hepatitis B Surface Antigen Negative (Negative)
[2023-12-03 12:05] LABS: HIV 1/2 Ab P24 Ag Result Negative (Negative); Hepatitis C Virus Antibody Negative (Negative)
[2023-12-03] MEDS: KETOROLAC 30 MG/ML VIAL (*BKC) IV PUSH ×2 (12:34→18:29)
[2023-12-03] MEDS: SIMETHICONE 80 MG TAB.CHEW PO ×2 (12:36→16:15)
[2023-12-03] MEDS: DEXTROSE 5%/LACTATED RINGERS 1,000 ML 125 ML IV CONT (12:41)
--- NOTE | 2023-12-03 14:53 | ADMGEN ---
1157-This patient, Kusum Decker, was admitted to OB 2nd Floor Room 289-00. Patient/family oriented to hospital policies and general routines including ID bracelet, bed and alarms, visiting hours, pain management, procedures, bathroom and other care routines, personal items, smoking policy, room service/diet, and visiting hours. Information on how to activate the Rapid Response Team has been discussed. Patient/Family are encouraged to report perceived risks to care and to ask questions if they do not understand what they are told or what they should do.
[2023-12-03] MEDS: ESTRADIOL 7 DAY 0.05 MG PATCH TRANSDERM (16:15)
[2023-12-03] MEDS: ONDANSETRON INJ 4 MG/2 ML VIAL IV PUSH (16:15)
[2023-12-03] MEDS: DOCUSATE SODIUM 100 MG CAPSULE PO (16:15)
[2023-12-03] MEDS: METOCLOPRAMIDE HCL INJ 10 MG/2 ML VIAL IV PUSH (19:14)
[2023-12-03] MEDS: HYDROmorphone HCL INJ (*CRX) 1 MG/ML SYR 0.5 MG IV PUSH (19:14)
[2023-12-04] MEDS: HYDROmorphone HCL INJ (*CRX) 1 MG/ML SYR 0.5 MG IV PUSH (03:38)
[2023-12-04] MEDS: ACETAMINOPHEN 500 MG TABLET 1000 MG PO ×3 (03:38→20:58)
[2023-12-04] MEDS: DEXTROSE 5%/LACTATED RINGERS 1,000 ML 125 ML IV CONT (03:40)
[2023-12-04 05:20] LABS: Basophils Percent Auto 0.2 % (0.2-1.2); Eosinophils Absolute Auto 0.1 K/mm3 (0-0.3); Eosinophils Percent Auto 0.6 % (0-4.4); Hematocrit 29.3 % (37.0-47.0); Hemoglobin 9.3 g/dL (12.0-15.0); Immature Granulocyte Absolute 0.03 K/mm3 (0.00-0.031); Immature Granulocyte Percent A 0.4 % (0-0.5); Immature Platelet Fraction Pct 4.8 % (0.9-11.2); Lymphocytes Absolute Auto 1.41 K/mm3 (0.9-3.2); Lymphocytes Percent Auto 17.1 % (18.3-44.2); Mean Corpuscular HGB Conc 31.7 g/dl (32-36); Mean Corpuscular Hemoglobin 25.9 pg (26-34); Mean Corpuscular Volume 81.6 fl (80-100); Mean Platelet Volume 10.8 fl (7.4-10.4); Monocytes Absolute Auto 0.7 K/mm3 (0.1-0.6); Monocytes Percent Auto 8.1 % (2.6-8.5); Neutrophils Absolute Auto 6.1 K/mm3 (1.3-6.7); Neutrophils Percent Auto 73.6 % (45.5-73.1); Platelet Count Result 157 k/mm3 (150-375); Red Blood Count 3.59 M/mm3 (4.2-5.4); Red Cell Distribution Width 23.3 % (11.5-14.5); White Blood Count 8.2 K/mm3 (4.5-10.0)
[2023-12-04 05:52] LABS: Platelet Estimate Adequate (Adequate)
[2023-12-04 05:53] LABS: Anisocytosis 1+; Hypochromasia 1+; Ovalocytes 1+; Schistocytes None Seen
[2023-12-04] MEDS: SIMETHICONE 80 MG TAB.CHEW PO ×2 (06:57→11:32)
[2023-12-04] MEDS: DOCUSATE SODIUM 100 MG CAPSULE PO ×2 (06:57→16:34)
[2023-12-04] MEDS: KETOROLAC 30 MG/ML VIAL (*BKC) IV PUSH (07:00)
--- NOTE | 2023-12-04 07:54 | PM.GYNPNOP ---
NEUROLOGY PROFESSOR - A/P Postoperative Procedures: Procedures Operation Date: 12/03/23 09:00 Actual Procedure Side Surgeon p Total Abdominal Hysterectomy with Bilateral Salpingo Oophorectomy Bilateral Etta Drew MD Postoperative day: 1 Postoperative status: doing well Postoperative plan: routine post-op care Time Spent With Patient Time: Total time spent is greater than 50% in coordination of care (as documented) at patient's floor/unit and/or counseling patient: Time with patient: less than 15 minutes NEUROLOGY PROFESSOR- PN:Subj Post-Op Subjective Date/time seen: 12/04/23 07:54 Subjective: pain is well controlled, patient is tolerating oral intake and patient reports nausea (much improved this am) Exam Narrative: Inc c/d/i abdomen soft nt NEUROLOGY PROFESSOR - PN: Obj Data Vital Signs Vital Signs: Vital Signs - 24 hr 12/03/23 07:58 12/03/23 10:10 12/03/23 10:25 Temperature 97.6 F 97.4 F L Pulse Rate 67 63 62 Respiratory Rate 13 13 Blood Pressure 113/70 116/64 102/65 Pulse Oximetry 100 99 99 Oxygen Delivery Room Air Simple Face Mask Simple Face Mask Oxygen Flow Rate 8 8 12/03/23 10:30 12/03/23 10:45 12/03/23 11:00 Temperature Pulse Rate 62 60 60 Respiratory Rate 13 13 12 Blood Pressure 153/74 H 136/70 144/78 H Pulse Oximetry 100 100 100 Oxygen Delivery Simple Face Mask Room Air Room Air Oxygen Flow Rate 8 12/03/23 11:15 12/03/23 11:30 12/03/23 12:05 Temperature 97.4 F L Pulse Rate 60 60 62 Respiratory Rate 12 12 18 Blood Pressure 134/74 137/81 123/77 Pulse Oximetry 100 100 100 Oxygen Delivery Room Air Room Air Oxygen Flow Rate 12/03/23 12:15 12/03/23 16:15 12/03/23 19:15 Temperature 97.6 F 98.7 F Pulse Rate 62 64 78 Respiratory Rate 18 18 20 Blood Pressure 131/78 148/84 H Pulse Oximetry 100 100 100 Oxygen Delivery Room Air Oxygen Flow Rate 12/03/23 19:15 12/03/23 23:40 12/03/23 23:40 Temperature 98.0 F Pulse Rate 67 Respiratory Rate 16 Blood Pressure 96/47 L Pulse Oximetry 98 Oxygen Delivery Room Air Room Air Oxygen Flow Rate Intake/Output Intake/Output: Intake & Output 12/01/23 12/02/23 12/03/23 12/04/23 23:59 23:59 23:59 23:59 Intake Total 1450.0 Output Total 320 Balance 1130.0 Meds/Results Medications: Active Medications Generic Name Dose Route Start Last Admin Trade Name Freq PRN Reason Stop Dose Admin Acetaminophen 1,000 mg 12/03/23 12:00 12/04/23 07:01 Acetaminophen 500 Mg Tablet PO Not Given Q6HR [facility] Docusate Sodium 100 mg 12/03/23 17:00 12/04/23 06:57 Docusate Sodium 100 Mg Capsule PO 100 mg BID MARCY Administration Estradiol 0.05 mg 12/03/23 09:00 12/03/23 16:15 Estradiol 7 Day 0.05 Mg Patch TRANSDERM 0.05 mg Q7D MARCY Administration Hydromorphone HCl 0.5 mg 12/03/23 11:54 12/04/23 03:38 Hydromorphone Hcl Inj (*Crx) 1 Mg/Ml Syr IV PUSH 0.5 mg Q2H PRN Administration Breakthrough Pain Rated 4-6 or NPO Dextrose/Lactated Ringer's 1,000 mls @ 125 mls/hr 12/03/23 11:54 12/04/23 06:49 Dextrose 5%/Lactated Ringers IV CONT Not Given .Q8H [facility] Ibuprofen 600 mg 12/04/23 06:00 12/04/23 06:51 Ibuprofen 600 Mg Tablet PO Not Given Q6HR [facility] Metoclopramide HCl 10 mg 12/03/23 19:04 12/03/23 19:14 Metoclopramide Hcl Inj 10 Mg/2 Ml Vial IV PUSH 10 mg Q6HR PRN Administration Nausea Naloxone HCl 0.1 mg 12/03/23 11:54 Naloxone Hcl 0.4 Mg/Ml Vial IV PUSH Q2M PRN Respiratory rate less than 10 Ondansetron HCl 4 mg 12/03/23 11:54 12/03/23 16:15 Ondansetron Inj 4 Mg/2 Ml Vial IV PUSH 4 mg Q6H PRN Administration Nausea Oxycodone HCl 5 mg 12/03/23 11:54 Oxycodone Hcl (*Crx) 5 Mg Tab Ir PO Q4H PRN Pain Rated 4-6 Oxycodone HCl 10 mg 12/03/23 11:54 Oxycodone Hcl (*Crx) 5 Mg Tab Ir PO Q6H PRN Pain Rated 7-10 Simethicone 80 mg 12/03/23 12:00 12/04/23 06:57 Simethicone 80 Mg Tab.Chew PO 80 mg TIDWM MARCY Administration Labs 12/04/23 04:54 Labs: Laboratory Results - last 24 hr 12/03/23 12/03/23 12/03/23 07:38 07:58 10:33 WBC RBC Hgb 12.5 D Hct 39.7 MCV MCH MCHC RDW Plt Count MPV Immature Gran % (Auto) Neut % (Auto) Lymph % (Auto) [place] % (Auto) Eos % (Auto) Baso % (Auto) Lymph # (Auto) [place] # (Auto) Eos # (Auto) Baso # (Auto) Abs Immat Gran (auto) Absolute Neuts (auto) Absolute Nucleated RBC Nucleated RBC % Platelet Estimate % Immature Plt Fraction Hypochromasia Anisocytosis Ovalocytes Schistocytes POC Urine HCG, Qual Negative Hep Bs Antigen Negative Hepatitis C Ab Screen Negative HIV 1&2 Ab/P24 Ag 4thGn Negative Blood Type A Positive Antibody Screen Negative 12/04/23 04:54 WBC 8.2 RBC 3.59 L Hgb 9.3 L D Hct 29.3 L MCV 81.6 MCH 25.9 L MCHC 31.7 L RDW 23.3 H Plt Count 157 MPV 10.8 H Immature Gran % (Auto) 0.4 Neut % (Auto) 73.6 H Lymph % (Auto) 17.1 L [place] % (Auto) 8.1 Eos % (Auto) 0.6 Baso % (Auto) 0.2 Lymph # (Auto) 1.41 [place] # (Auto) 0.7 H Eos # (Auto) 0.1 Baso # (Auto) 0.0 Abs Immat Gran (auto) 0.03 Absolute Neuts (auto) 6.1 Absolute Nucleated RBC 0.000 Nucleated RBC % 0.0 Platelet Estimate Adequate % Immature Plt Fraction 4.8 Hypochromasia 1+ Anisocytosis 1+ Ovalocytes 1+ Schistocytes None seen POC Urine HCG, Qual Hep Bs Antigen Hepatitis C Ab Screen HIV 1&2 Ab/P24 Ag 4thGn Blood Type Antibody Screen
[2023-12-04 08:20] VITALS: BP 102/70; PULSE 62; RESP 16; TEMP 36.3; O2SAT 100
[2023-12-04] MEDS: oxyCODONE HCL (*CRX) 5 MG TAB IR 10 MG PO ×2 (11:32→21:02)
[2023-12-04] MEDS: IBUPROFEN 600 MG TABLET PO ×2 (15:00→20:58)
[2023-12-04] MEDS: oxyCODONE HCL (*CRX) 5 MG TAB IR PO (16:35)
[2023-12-04 20:30] VITALS: BP 110/69; PULSE 63; RESP 16; TEMP 36.8; O2SAT 100
[2023-12-05] MEDS: IBUPROFEN 600 MG TABLET PO ×2 (03:10→10:02)
[2023-12-05] MEDS: ACETAMINOPHEN 500 MG TABLET 1000 MG PO ×2 (03:10→10:02)
[2023-12-05] MEDS: SIMETHICONE 80 MG TAB.CHEW PO (06:54)
[2023-12-05] MEDS: DOCUSATE SODIUM 100 MG CAPSULE PO (06:54)
[2023-12-05] MEDS: oxyCODONE HCL (*CRX) 5 MG TAB IR 10 MG PO (06:55)
--- NOTE | 2023-12-05 07:56 | WPDPN ---
Progress Note: A&P Assessment and Plan (1) Status post total abdominal hysterectomy and bilateral salpingo-oophorectomy ([facility]): Code(s): Z90.710 - Acquired absence of both cervix and uterus; Z90.722 - Acquired absence of ovaries, bilateral; Z90.79 - Acquired absence of other genital organ(s) Status: Acute Subjective Date/time seen: 12/05/23 07:10 Interval history: POD 2 from [facility]. Review of Systems Review of Systems: All systems reviewed & are unremarkable except as noted in HPI and below Exam Const: General: cooperative, no acute distress and awake Orientation/consciousness: patient oriented x3 Limitations: no limitations Resp: Effort & Inspection: normal respiratory effort and able to speak in complete sentences Auscultation: clear to auscultation bilaterally Cardio: Rate: regular rate Peripheral pulses: Peripheral pulses 2+ throughout GI: Inspection: normal to inspection Auscultation: normal bowel sounds : General: Yes bladder normal to palpation Bimanual exam- vagina & uterus: bladder normal to palpation Skin: General skin exam: normal color Other: Incision Neuro: General: patient oriented x3 Cognition (Neuro): normal cognition Speech: normal speech Extrem: General: normal to inspection Psych: Appearance: grossly normal Mental Status: mental status grossly normal Speech and movement: Normal speech and movement present Affect: normal affect Attitude: cooperative Thought process: Normal thought process present Objective Data Vital Signs Vital Signs: Vital Signs - 24 hr 12/04/23 08:20 12/04/23 08:00 12/04/23 20:30 Temperature 97.4 F L Pulse Rate 62 Respiratory Rate 16 Blood Pressure 102/70 Pulse Oximetry 100 Oxygen Delivery Room Air Room Air 12/04/23 20:30 Temperature 98.2 F Pulse Rate 63 Respiratory Rate 16 Blood Pressure 110/69 Pulse Oximetry 100 Oxygen Delivery Intake/Output Intake/Output: Intake & Output 12/02/23 12/03/23 12/04/23 12/05/23 23:59 23:59 23:59 23:59 Intake Total 1450.0 Output Total 320 300 Balance 1130.0 -300 Meds/Results Medications: Active Medications Generic Name Dose Route Start Last Admin Trade Name Freq PRN Reason Stop Dose Admin Acetaminophen 1,000 mg 12/03/23 12:00 12/05/23 03:10 Acetaminophen 500 Mg Tablet PO 1,000 mg Q6HR MARCY Administration Docusate Sodium 100 mg 12/03/23 17:00 12/05/23 06:54 Docusate Sodium 100 Mg Capsule PO 100 mg BID MARCY Administration Estradiol 0.05 mg 12/03/23 09:00 12/03/23 16:15 Estradiol 7 Day 0.05 Mg Patch TRANSDERM 0.05 mg Q7D MARCY Administration Hydromorphone HCl 0.5 mg 12/03/23 11:54 12/04/23 03:38 Hydromorphone Hcl Inj (*Crx) 1 Mg/Ml Syr IV PUSH 0.5 mg Q2H PRN Administration Breakthrough Pain Rated 4-6 or NPO Dextrose/Lactated Ringer's 1,000 mls @ 125 mls/hr 12/03/23 11:54 12/04/23 15:08 Dextrose 5%/Lactated Ringers IV CONT Not Given .Q8H MARCY Ibuprofen 600 mg 12/04/23 06:00 12/05/23 03:10 Ibuprofen 600 Mg Tablet PO 600 mg Q6HR MARCY Administration Metoclopramide HCl 10 mg 12/03/23 19:04 12/03/23 19:14 Metoclopramide Hcl Inj 10 Mg/2 Ml Vial IV PUSH 10 mg Q6HR PRN Administration Nausea Naloxone HCl 0.1 mg 12/03/23 11:54 Naloxone Hcl 0.4 Mg/Ml Vial IV PUSH Q2M PRN Respiratory rate less than 10 Ondansetron HCl 4 mg 12/03/23 11:54 12/03/23 16:15 Ondansetron Inj 4 Mg/2 Ml Vial IV PUSH 4 mg Q6H PRN Administration Nausea Oxycodone HCl 5 mg 12/03/23 11:54 12/05/23 06:55 Oxycodone Hcl (*Crx) 5 Mg Tab Ir PO 5 mg Q4H PRN Administration Pain Rated 4-6 Oxycodone HCl 10 mg 12/03/23 11:54 12/04/23 21:02 Oxycodone Hcl (*Crx) 5 Mg Tab Ir PO 10 mg Q6H PRN Administration Pain Rated 7-10 Simethicone 80 mg 12/03/23 12:00 12/05/23 06:54 Simethicone 80 Mg Tab.Chew PO 80 mg TIDWM MARCY Administration
[2023-12-05 08:00] VITALS: BP 122/77; PULSE 62; RESP 18; TEMP 36.7; O2SAT 100
== END 2023-12-05 10:21 | disposition home or self-care (01) | DRG 743 ==
LOC: ANHOB2 12-04 10:11
PROVIDERS: Admitting Provider Obstetrics & Gynecology Gynecology; Visit Provider Obstetrics & Gynecology Gynecology
PROC: 0UT94ZZ Resection of Uterus, Percutaneous Endoscopic Approach (ICD-10-PCS; principal; 2023-12-03 09:00)
DX: D25.9 Leiomyoma of uterus, unspecified (principal); N92.0 Excessive and frequent menstruation with regular cycle; D64.9 Anemia, unspecified; F17.210 Nicotine dependence, cigarettes, uncomplicated
CPT/HCPCS: 36415; 85014; 85018; 85025; 85055; 86703; 86803; 86850; 86900; 86901; 87340; 88307; A9270; G0432; J0690; J1100; J1171; J1885; J2250; J2405; J2704; J2765; J3010; J7120; J7121

== ENCOUNTER 2024-07-16 09:39 | Emergency (ER) | payer BC, SELFPAY ==
[2024-07-16 09:46] VITALS: BP 146/72; PULSE 70; RESP 16; TEMP 36.8; O2SAT 99
--- NOTE | 2024-07-16 09:57 | ED.EYEPROB ---
HPI - Eye Problem General Chief complaint: Eye Problems Stated complaint: Left Eye Irritation Time Seen by Provider: 07/16/24 09:50 Source: patient and RN notes reviewed Mode of arrival: ambulatory Limitations: no limitations History of Present Illness HPI Narrative: Patient presents today 4 day history of possible stye to the left upper eyelid with redness, mild tenderness, and swelling. Symptoms have worsened over the last 2 days. She also reports excessive tearing. She has been doing warm and cold compresses without relief. Wears glasses but no contacts. Related Data Home Medications ?Medication ?Instructions ?Recorded ?Confirmed ?Last Taken ?Type No Home Medications 07/16/24 07/16/24 Unknown History Allergies Allergy/AdvReac Type Severity Reaction Status Date / Time No Known Allergies Allergy Verified 07/16/24 09:59 Review of Systems Review of Systems: CONSTITUTIONAL: Denies body aches, fever, chills, or sweats. EYES: Left eyelid swelling and pain ENT: Denies rhinorrhea, congestion, sore throat, or otalgia. CARDIOVASCULAR: Denies chest pain, palpitations, or edema. RESPIRATORY: Denies cough or dyspnea. GASTROINTESTINAL: Denies abdominal pain, nausea, vomiting, or diarrhea. GENITOURINARY: Denies dysuria or hematuria. SKIN: Denies rash, itching, or wounds. MUSCULOSKELETAL: Denies back pain, joint pain, or myalgia. NEUROLOGIC: Denies headache, numbness, tingling, or weakness. PSYCH: Denies depression or anxiety. [facility] Past Medical History Medical History Fibroids Anemia History of spontaneous x2 (normal spontaneous vaginal delivery) x2 Surgical History Surgical History History of hysteroscopy H/O dilation and curettage Social History Social History Years smoked: 45 Smoking status: Current every day smoker Tobacco type: cigarettes Alcohol intake: never Substance use: never Substance use type: marijuana Other substance usage details: Daily Last use: june 13, 2022 Living arrangements: with family Spiritual care concerns: No Comments At time of signature, I have reviewed and agree with nursing past medical, surgical, social and family history unless otherwise noted. Please see nursing chart for further information. There is no relevant family history pertinent to the presenting complaint Exam Narrative: GENERAL: Well-appearing, well-nourished, and in no acute distress. HEAD: Normocephalic, atraumatic. EYES: EOMI. Left eye: Mild to moderate swelling and erythema to the upper eyelid. Tenderness to the eyelash area. Tiny pustule noted at lash line. No drainage noted. Conjunctiva normal. Right eye normal ENT: Mucous membranes pink and moist. NECK: Normal AROM. CHEST: No respiratory distress. EXTREMITIES: Normal range of motion. No edema. SKIN: Warm, dry, no rash. Capillary refill normal. Normal skin turgor. NEURO: No focal deficits. Alert and oriented x3. Gait steady. PSYCH: Normal affect. No signs of depression or anxiety. Course Course Level of Care: Express Care Visit Vital Signs Vital signs: Vital Signs Temperature 98.2 F 07/16/24 09:46 Pulse Rate 70 07/16/24 09:46 Respiratory Rate 16 07/16/24 09:46 Blood Pressure 146/72 H 07/16/24 09:46 Pulse Oximetry 99 07/16/24 09:46 Oxygen Delivery Room Air 07/16/24 09:46 Temperature 98.2 F 07/16/24 09:46 Pulse Rate 70 07/16/24 09:46 Respiratory Rate 16 07/16/24 09:46 Blood Pressure 146/72 H 07/16/24 09:46 Pulse Oximetry 99 07/16/24 09:46 Oxygen Delivery Room Air 07/16/24 09:46 Reviewed MDM - Eye Problem MDM Narrative Medical decision making narrative: Patient will be treated for stye with developing cellulitis of the eyelid with Polytrim and Augmentin. Also recommend cleaning lash line with baby shampoo. Anticipatory guidance given. ED and eye doctor follow-up precautions given Differential Diagnosis Differential diagnosis: Likely corneal abrasion, conjunctivitis, periorbital cellulitis and other (Stye, blepharitis) Critical Care Time Critical Care Time Critical Care Time: No Discharge Plan Discharge Clinical Impression: Hordeolum externum left upper eyelid, Cellulitis of left upper eyelid Patient Disposition: Home Condition: Stable Instructions: Antibiotic Form, Cellulitis (ED), Stye (ED) Additional Instructions: Please use the eyedrops and oral antibiotics as prescribed. Take Tylenol or ibuprofen for pain if needed. Please wash your eyelid and eyelashes with baby shampoo 1-2 times daily. Continue warm compresses. Follow-up with your eye doctor in 2 days if symptoms are not improving, or go to the ER immediately if symptoms worsen to include fever or vision change. Your blood pressure was elevated above 120/80 today at Urgent Care. This puts you above the threshold for follow up. Please schedule a followup visit with your personal physician as soon as possible, for further evaluation and treatment. Even blood pressure exceeding 120/80 may indicate pre-hypertension. Patient Language: Montene[place]in Prescriptions: New polymyxin B sulf-trimethoprim 10,000 unit- 1 mg/mL drops 1 drp LEFT EYE QID 7 Days Qty: 10 0RF amoxicillin-pot clavulanate 875-125 mg tablet 1 tablet PO Q12H 7 Days Qty: 14 0RF No Action No Home Medications Follow-up/Referrals: PHYSICIAN,[facility] [Primary Care Provider] - Stand Alone Forms: Work/School Release IP Time of Disposition: 10:00
== END 2024-07-16 10:06 | disposition home or self-care (01) ==
PROVIDERS: Emergency Provider Nurse Practitioner
DX: H00.014 Hordeolum externum left upper eyelid (principal); H00.034 Abscess of left upper eyelid; F17.210 Nicotine dependence, cigarettes, uncomplicated
CPT/HCPCS: 99213; G0463